=== PATIENT | female | born 1980 | race Caucasian/White ===

== ENCOUNTER 2019-02-13 14:31 | Emergency (ER) | payer OTHER, SELFPAY ==
[2019-02-13 14:44] VITALS: BP 171/70; PULSE 97; RESP 23; TEMP 36.7; O2SAT 97; BMI 50.0
--- NOTE | 2019-02-13 14:52 | DI.RAD.S_ITS ---
PROCEDURE: XR CHEST 1V INDICATIONS: anxiety, sob, dizzy sometimes TECHNIQUE: One view of the chest was acquired. COMPARISON: [facility], , CHEST 1 VIEW, 07/31/2015, 15:03. FINDINGS: Surgical changes and devices: None. Lungs and pleura: Lungs are clear. No pleural effusions or pneumothorax. Mediastinum: Mediastinal contours appear normal. Heart size is normal. Bones and chest wall: No suspicious bony lesions. Overlying soft tissues appear unremarkable. IMPRESSION: Mildly reduced inspiratory volume, source of current symptoms is not seen. Dictated by: Guanako Nava M.D. on 02/13/2019 at 15:17 Approved by: Guanako Nava M.D. on 02/13/2019 at 15:17
--- NOTE | 2019-02-13 14:52 | DI.US.S_ITS ---
PROCEDURE: US PERIPH VENOUS LOW EXTREM BI INDICATIONS: SHORTNESS OF BREATH TECHNIQUE: Real-time imaging, as well as color and pulse Doppler interrogation, were performed of the deep veins of both legs from the inguinal ligament to the popliteal fossa. COMPARISON: None. FINDINGS: Right: The common femoral, femoral and popliteal veins are normally compressible, and free of intraluminal thrombus. Color and pulse Doppler demonstrate normal phasic intravascular flow. There is normal augmentation response to distal compression maneuver. Left: The common femoral, femoral and popliteal veins are normally compressible, and free of intraluminal thrombus. Color and pulse Doppler demonstrate normal phasic intravascular flow. There is normal augmentation response to distal compression maneuver. IMPRESSION: No evidence of deep vein thrombosis within the bilateral lower extremities. Dictated by: Dimitri Montemayor M.D. on 02/13/2019 at 15:28 Approved by: Dimitri Montemayor M.D. on 02/13/2019 at 15:31
--- NOTE | 2019-02-13 14:55 | ED.SOB ---
HPI - SOB/Dyspnea General Chief Complaint: Shortness of Breath/Dyspnea Stated Complaint: sob/vertigo/chest pressure intermittently x2 weeks Time Seen by Provider: 02/13/19 14:43 Source: patient Mode of arrival: ambulatory Limitations: no limitations History of Present Illness 38-year-old female comes in the emergency department with complaint of elevated shortness of breath, slight dizziness. Patient does not feel like she is going to pass out or that the room is spinning. She just feels a little off. She states that she tripped be this mostly to anxiety. She is supposed to take a long distance late and was concerned about potential for pulmonary embolism. She is obese but does not have any other past medical history, she denies any regular medications, no prior surgeries. She is not on any estrogen or progesterone. She does have an IUD. She is family history with mom having a pulmonary embolism when she had lung cancer, otherwise no other family history of PEs. No other family history of cardiac or pulmonary issues either. Patient does not smoke she does not drink regularly, no illicit. Patient commutes about an hour daily, otherwise no long distance travel. She states she came in today because she has the plan trip and someone told her that those symptoms in combination could potentially be a pulmonary embolism. Related Data Home Medications Medication Instructions Recorded Confirmed Vitamin C 1 tab PO QPM 02/13/19 02/13/19 Vitamin D3 1 tab PO QPM 02/13/19 02/13/19 magnesium 1 tab PO QPM 02/13/19 02/13/19 multivitamin 1 tab PO QPM 02/13/19 02/13/19 Allergies Allergy/AdvReac Type Severity Reaction Status Date / Time No Known Drug Allergies Allergy Verified 02/13/19 14:44 Review of Systems Review of Systems ROS Unobtainable: All systems reviewed & are unremarkable except as noted in HPI and below Constitutional Denies chills, Denies fever(s), Denies lethargy and Denies weakness Cardiovascular Denies chest pain, Denies diaphoresis, Denies syncope, Denies rapid heart rate, Denies pedal edema, Denies edema, Denies irregular heart rhythm, Denies lightheadedness, Denies radiating jaw, neck or arm pain, Denies palpitations, Reports dyspnea (Feels like tight band, occurs when she thinks about it), Denies dyspnea on exertion and Denies orthopnea Respiratory Denies change in phlegm color, Denies chest congestion, Denies cough, Denies excessive phlegm production, Denies pain on inspiration, Denies pain with cough, Reports dyspnea (Feels like tight band, occurs when she thinks about it), Denies dyspnea on exertion and Denies wheezing Gastrointestinal Gastrointestinal: Denies abdominal pain, Denies change in bowel habits, Denies diarrhea, Denies nausea and Reports vomiting (Over the weekend, resolved. Contributes to ?bad strawberries?) Genitourinary Denies hematuria, Denies flank pain, Denies urinary incontinence and Denies urinary urgency Musculoskeletal Denies muscle cramps and Denies tingling Integumentary/Breasts Denies rash, Denies unusual bruising and Denies wounds Neurologic Denies syncope, Denies tingling and Denies weakness Endocrine Denies palpitations Allergic/Immunologic Denies wheezing PFSH Social History Smoking Status: Never smoker Social History (Updated 02/13/19 @ 14:58 by Keila Gale DO) Smoking Status: Never smoker alcohol intake: current substance use type: does not use Exam Narrative Exam Narrative: GENERAL: Alert and oriented x three, obese, well-appearing female in no acute distress. HEENT: Head normocephalic, atraumatic, EOMI, pupils reactive, face symmetric, moist mucous membranes NECK: Supple, full range of motion CARDIOVASCULAR: Regular rate and rhythm without murmurs, rubs or gallops. RESPIRATORY: Breath sounds equal bilaterally, no wheezes rales or rhonchi. ABDOMEN: Soft, nontender. Normoactive bowel sounds all 4 quadrants. No guarding or rebound, rigidity, no mass : No CVA tenderness EXTREMITIES: Normal range of motion, no clubbing or edema. No swelling in lower extremities no tenderness with Homans bilaterally, calves appear equal in size.. Neurovascularly intact NEUROLOGICAL: Cranial nerves II through XII grossly intact. Moving all extremities SKIN: Warm, dry, no petechiae, no rashes or lesions. Initial Vital Signs Initial Vital Signs: Vital Signs Temperature 98.1 F 02/13/19 14:44 Pulse Rate 97 H 02/13/19 14:44 Respiratory Rate 23 02/13/19 14:44 Blood Pressure 171/70 H 02/13/19 14:44 Pulse Oximetry 97 02/13/19 14:44 Scores HEART Score Heart Score history: Slightly Suspicious Heart Score EKG: Non-Specific repolarization disturbance Heart Score Age: < 45 years old Heart Score risk factors: No known risk factors Heart Score troponin: < or = to normal limit Heart Score Total: 1 PERC Score Age greater than or equal to 50 years: No Heart rate greater than or equal to 100 bpm: Yes Room Air O2 Sat less than 95%: No Unilateral leg swelling: No Recent trauma or surgery: No Hemoptysis: No Prior PE or DVT: No Hormone Use: No Total PERC Score: 1 Course Orders Ordered: ED Orders 02/13/19 14:45 B Type Natriuretic Peptide Stat Complete Blood Count AUTO DIFF Stat Comprehensive Metabolic Panel Stat D Dimer Stat Partial Thromboplastin Time Stat Prothrombin Time INR Stat Troponin & CK Cardiac Panel Stat 02/13/19 14:51 Consult to Respiratory Therapy Evaluate & Treat EKG-12 Lead Stat Measure peak expiratory flow ONCE RT Consult Eval and Treat Now 02/13/19 14:52 US periph venous low extrem bi Stat XR chest 1V Stat 02/13/19 15:09 Lactate (Lactic Acid) Stat Vital Signs - 8 hr 02/13/19 14:44 02/13/19 15:00 02/13/19 15:37 Temperature 98.1 F Pulse Rate 97 H 91 H 86 Respiratory Rate 23 16 15 Blood Pressure 171/70 H Blood Pressure [Right Arm] 164/92 H 156/71 H Pulse Oximetry 97 02/13/19 16:38 Temperature Pulse Rate 86 Respiratory Rate 13 Blood Pressure Blood Pressure [Right Arm] 137/71 Pulse Oximetry 97 MDM - SOB/Dyspnea Lab Data Attestation: I reviewed the patient's lab results. Result diagrams: 02/13/19 14:45 02/13/19 14:45 Lab Results 02/13/19 02/13/19 02/13/19 Range/Units 14:45 14:45 14:45 WBC 9.2 (4.5-11.0) X10^3/uL RBC 4.88 (4.0-5.2) X10^6/uL Hgb 13.7 (12.0-16.0) g/dL Hct 40.8 (36-46) % MCV 83.6 (80-100) fL MCH 28.0 (26-34) PG MCHC 33.5 (30-36) % RDW 14.8 (11.6-14.8) % Plt Count 289 (150-400) X10^3/uL Neut % (Auto) 55.5 (50-75) % Lymph % (Auto) 29.2 (25-40) % Austin % (Auto) 11.2 (3-14) % Eos % (Auto) 3.0 (2-4) % Baso % (Auto) 1.1 (0-2) % Neut # (Auto) 5100 (6129-5047) /uL Lymph # (Auto) 2700 (4101-5047) /uL Austin # (Auto) 1000 H (0-900) /uL Eos # (Auto) 300 (0-450) /uL Baso # (Auto) 100 (0-100) /uL PT 11.7 (10.1-12.7) SECONDS INR 1.0 (0.9-1.3) APTT 28 (26.4-36.2) SECONDS D-Dimer < 200 (<230) ng/mL Sodium 139 (137-145) mmol/L Potassium 4.2 (3.4-5.1) mmol/L Chloride 103 (98-107) mmol/L Carbon Dioxide 27 (22-32) mmol/L BUN 8 (7-17) mg/dL Creatinine 0.50 L (0.52-1.04) mg/dL Estimated GFR > 60.0 (>60) mL/min BUN/Creatinine Ratio 16.0 (6-22) Glucose 167 H (70-100) mg/dL Lactate (0.7-2.1) mmol/L Calcium 9.4 (8.4-10.2) mg/dL Total Bilirubin 0.7 (0.2-1.3) mg/dL AST 43 H (14-36) IU/L ALT 50 (9-52) IU/L Alkaline Phosphatase 60 (38-126) U/L Total Creatine Kinase (30-135) U/L CK-MB (CK-2) CK-MB (CK-2) Rel Index Troponin I (0.01-0.034) ng/mL B-Natriuretic Peptide (<100) Total Protein 8.0 (6.3-8.2) g/dL Albumin 4.6 (3.5-5.0) g/dL Globulin 3.4 (1.7-4.1) g/dL Albumin/Globulin Ratio 1.4 (1.0-2.8) 02/13/19 02/13/19 02/13/19 Range/Units 14:45 14:45 15:09 WBC (4.5-11.0) X10^3/uL RBC (4.0-5.2) X10^6/uL Hgb (12.0-16.0) g/dL Hct (36-46) % MCV (80-100) fL MCH (26-34) PG MCHC (30-36) % RDW (11.6-14.8) % Plt Count (150-400) X10^3/uL Neut % (Auto) (50-75) % Lymph % (Auto) (25-40) % Austin % (Auto) (3-14) % Eos % (Auto) (2-4) % Baso % (Auto) (0-2) % Neut # (Auto) (5270-3544) /uL Lymph # (Auto) (2034-0432) /uL Austin # (Auto) (0-900) /uL Eos # (Auto) (0-450) /uL Baso # (Auto) (0-100) /uL PT (10.1-12.7) SECONDS INR (0.9-1.3) APTT (26.4-36.2) SECONDS D-Dimer (<230) ng/mL Sodium (137-145) mmol/L Potassium (3.4-5.1) mmol/L Chloride (98-107) mmol/L Carbon Dioxide (22-32) mmol/L BUN (7-17) mg/dL Creatinine (0.52-1.04) mg/dL Estimated GFR (>60) mL/min BUN/Creatinine Ratio (6-22) Glucose (70-100) mg/dL Lactate 1.6 (0.7-2.1) mmol/L Calcium (8.4-10.2) mg/dL Total Bilirubin (0.2-1.3) mg/dL AST (14-36) IU/L ALT (9-52) IU/L Alkaline Phosphatase (38-126) U/L Total Creatine Kinase 100 (30-135) U/L CK-MB (CK-2) TNP CK-MB (CK-2) Rel Index TNP Troponin I < 0.012 (0.01-0.034) ng/mL B-Natriuretic Peptide < 100 (<100) Total Protein (6.3-8.2) g/dL Albumin (3.5-5.0) g/dL Globulin (1.7-4.1) g/dL Albumin/Globulin Ratio (1.0-2.8) Imaging Data Chest x-ray: Radiologist's impression: [address] [address] XRay Report Signed Patient: [facility]#: [id number] : 1980Acct:[id number] Age/Sex: 38 / FDate of Service: 02/13/19 Loc: ED Accession Number: [id number] Procedure: XR chest 1V Ordering Provider: Keila Gale D.O. PROCEDURE: XR CHEST 1V INDICATIONS: anxiety, sob, dizzy sometimes TECHNIQUE: One view of the chest was acquired. COMPARISON: [facility], CHEST 1 VIEW, 07/31/2015, 15:03. FINDINGS: Surgical changes and devices: None. Lungs and pleura: Lungs are clear. No pleural effusions or pneumothorax. Mediastinum: Mediastinal contours appear normal. Heart size is normal. Bones and chest wall: No suspicious bony lesions. Overlying soft tissues appear unremarkable. IMPRESSION: Mildly reduced inspiratory volume, source of current symptoms is not seen. Dictated by: Guanako Nava M.D. on 02/13/2019 at 15:17 Approved by: Guanako Nava M.D. on 02/13/2019 at 15:17 Bilateral lower extremity ultrasound: Radiologist's impression: [address] [address] Ultrasound Report Signed Patient: [facility]#: [id number] : 1980Acct:[id number] Age/Sex: 38 / FDate of Service: 02/13/19 Loc: ED Accession Number: [id number] Procedure: US periph venous low extrem bi Ordering Provider: Keila Gale D.O. PROCEDURE: US PERIPH VENOUS LOW EXTREM BI INDICATIONS: SHORTNESS OF BREATH TECHNIQUE: Real-time imaging, as well as color and pulse Doppler interrogation, were performed of the deep veins of both legs from the inguinal ligament to the popliteal fossa. COMPARISON: None. FINDINGS: Right: The common femoral, femoral and popliteal veins are normally compressible, and free of intraluminal thrombus. Color and pulse Doppler demonstrate normal phasic intravascular flow. There is normal augmentation response to distal compression maneuver. Left: The common femoral, femoral and popliteal veins are normally compressible, and free of intraluminal thrombus. Color and pulse Doppler demonstrate normal phasic intravascular flow. There is normal augmentation response to distal compression maneuver. IMPRESSION: No evidence of deep vein thrombosis within the bilateral lower extremities. Dictated by: Dimitri Montemayor M.D. on 02/13/2019 at 15:28 Approved by: Dimitri Montemayor M.D. on 02/13/2019 at 15:31 ECG Data Attestation: I personally reviewed and interpreted this ECG as follows: Prior ECG tracings: available for review Interpretation: Sinus tachycardia rate of 101 ND 176 QRS of 95 and QTC of 390. ST slightly elevated in 3 and avF, depression appreciated. Patient has low voltage in 3 and AVF. MDM Narrative Medical decision making narrative: Patient's lab work including D-dimer, bilateral lower extremity ultrasounds, chest x-ray and CBC and CMP as well as coags are all negative. Patient's EKG has limited change in 3 and AVF although this is similar to her prior EKG from 2015. Patient politely refused a test as she states that there is no change she is and she has not had sexual activity over a year patient elevated 167 and AST was slightly elevated at 43. Discussed with patient my suspicion for pulmonary embolism as low. She has had these symptoms but she states that they only happened when she thinks about them. She does not have another risk factors besides obesity. Her family history her mother did have potentially inciting cause with her active lung cancer. Discussed with patient she feels comfortable not doing additional imaging at this time. Discharge Plan Departure Patient Disposition: Home Clinical Impression: Dyspnea Discharge Date/Time: 02/13/19 16:50 Interventions: ED Discharge Assessment Last Done: 02/13/19 16:49 Instructions: DI for Shortness of Breath Activity Restrictions/Additional Instructions: Follow-up with primary care in the next 3-5 days if your having continuing symptoms. Call in [phone] for a referral. Return to the emergency department for fevers greater than 100.4 F, worsening shortness of breath, new chest pain or pressure, passing out, persistent vomiting,, swelling of her lower extremities, redness or cramping and pain in the lower extremities, if having any other new or concerning symptoms. Prescriptions: No Action multivitamin Tablet 1 tab PO QPM RF: 0 Vitamin C 1 tab PO QPM RF: 0 Vitamin D3 1 tab PO QPM RF: 0 magnesium 1 tab PO QPM RF: 0
[2019-02-13 15:00] VITALS: BP 164/92; PULSE 91; RESP 16
--- NOTE | 2019-02-13 15:01 | ED_ITS ---
HPI - SOB/Dyspnea General Chief Complaint: Shortness of Breath/Dyspnea Stated Complaint: sob/vertigo/chest pressure intermittently x2 weeks Time Seen by Provider: 02/13/19 14:43 Source: patient Mode of arrival: ambulatory Limitations: no limitations History of Present Illness 38-year-old female comes in the emergency department with complaint of elevated shortness of breath, slight dizziness. Patient does not feel like she is going to pass out or that the room is spinning. She just feels a little off. She states that she tripped be this mostly to anxiety. She is supposed to take a long distance late and was concerned about potential for pulmonary embolism. She is obese but does not have any other past medical history, she denies any regular medications, no prior surgeries. She is not on any estrogen or progesterone. She does have an IUD. She is family history with mom having a pulmonary embolism when she had lung cancer, otherwise no other family history of PEs. No other family history of cardiac or pulmonary issues either. Patient does not smoke she does not drink regularly, no illicit. Patient commutes about an hour daily, otherwise no long distance travel. She states she came in today because she has the plan trip and someone told her that those symptoms in combination could potentially be a pulmonary embolism. Related Data Home Medications Medication Instructions Recorded Confirmed Vitamin C 1 tab PO QPM 02/13/19 02/13/19 Vitamin D3 1 tab PO QPM 02/13/19 02/13/19 magnesium 1 tab PO QPM 02/13/19 02/13/19 multivitamin 1 tab PO QPM 02/13/19 02/13/19 Allergies Allergy/AdvReac Type Severity Reaction Status Date / Time No Known Drug Allergies Allergy Verified 02/13/19 14:44 Review of Systems Review of Systems ROS Unobtainable: All systems reviewed & are unremarkable except as noted in HPI and below Constitutional Denies chills, Denies fever(s), Denies lethargy and Denies weakness Cardiovascular Denies chest pain, Denies diaphoresis, Denies syncope, Denies rapid heart rate, Denies pedal edema, Denies edema, Denies irregular heart rhythm, Denies lightheadedness, Denies radiating jaw, neck or arm pain, Denies palpitations, Reports dyspnea (Feels like tight band, occurs when she thinks about it), Denies dyspnea on exertion and Denies orthopnea Respiratory Denies change in phlegm color, Denies chest congestion, Denies cough, Denies excessive phlegm production, Denies pain on inspiration, Denies pain with cough, Reports dyspnea (Feels like tight band, occurs when she thinks about it), Denies dyspnea on exertion and Denies wheezing Gastrointestinal Gastrointestinal: Denies abdominal pain, Denies change in bowel habits, Denies diarrhea, Denies nausea and Reports vomiting (Over the weekend, resolved. Contributes to ?bad strawberries?) Genitourinary Denies hematuria, Denies flank pain, Denies urinary incontinence and Denies urinary urgency Musculoskeletal Denies muscle cramps and Denies tingling Integumentary/Breasts Denies rash, Denies unusual bruising and Denies wounds Neurologic Denies syncope, Denies tingling and Denies weakness Endocrine Denies palpitations Allergic/Immunologic Denies wheezing PFSH Social History Smoking Status: Never smoker Social History (Updated 02/13/19 @ 14:58 by Keila Gale DO) Smoking Status: Never smoker alcohol intake: current substance use type: does not use Exam Narrative Exam Narrative: GENERAL: Alert and oriented x three, obese, well-appearing female in no acute distress. HEENT: Head normocephalic, atraumatic, EOMI, pupils reactive, face symmetric, moist mucous membranes NECK: Supple, full range of motion CARDIOVASCULAR: Regular rate and rhythm without murmurs, rubs or gallops. RESPIRATORY: Breath sounds equal bilaterally, no wheezes rales or rhonchi. ABDOMEN: Soft, nontender. Normoactive bowel sounds all 4 quadrants. No guarding or rebound, rigidity, no mass : No CVA tenderness EXTREMITIES: Normal range of motion, no clubbing or edema. No swelling in lower extremities no tenderness with Homans bilaterally, calves appear equal in size.. Neurovascularly intact NEUROLOGICAL: Cranial nerves II through XII grossly intact. Moving all extremities SKIN: Warm, dry, no petechiae, no rashes or lesions. Initial Vital Signs Initial Vital Signs: Vital Signs Temperature 98.1 F 02/13/19 14:44 Pulse Rate 97 H 02/13/19 14:44 Respiratory Rate 23 02/13/19 14:44 Blood Pressure 171/70 H 02/13/19 14:44 Pulse Oximetry 97 02/13/19 14:44 Scores HEART Score Heart Score history: Slightly Suspicious Heart Score EKG: Non-Specific repolarization disturbance Heart Score Age: < 45 years old Heart Score risk factors: No known risk factors Heart Score troponin: < or = to normal limit Heart Score Total: 1 PERC Score Age greater than or equal to 50 years: No Heart rate greater than or equal to 100 bpm: Yes Room Air O2 Sat less than 95%: No Unilateral leg swelling: No Recent trauma or surgery: No Hemoptysis: No Prior PE or DVT: No Hormone Use: No Total PERC Score: 1 Course Orders Ordered: ED Orders 02/13/19 14:45 B Type Natriuretic Peptide Stat Complete Blood Count AUTO DIFF Stat Comprehensive Metabolic Panel Stat D Dimer Stat Partial Thromboplastin Time Stat Prothrombin Time INR Stat Troponin & CK Cardiac Panel Stat 02/13/19 14:51 Consult to Respiratory Therapy Evaluate & Treat EKG-12 Lead Stat Measure peak expiratory flow ONCE RT Consult Eval and Treat Now 02/13/19 14:52 US periph venous low extrem bi Stat XR chest 1V Stat 02/13/19 15:09 Lactate (Lactic Acid) Stat Vital Signs - 8 hr 02/13/19 14:44 02/13/19 15:00 02/13/19 15:37 Temperature 98.1 F Pulse Rate 97 H 91 H 86 Respiratory Rate 23 16 15 Blood Pressure 171/70 H Blood Pressure [Right Arm] 164/92 H 156/71 H Pulse Oximetry 97 02/13/19 16:38 Temperature Pulse Rate 86 Respiratory Rate 13 Blood Pressure Blood Pressure [Right Arm] 137/71 Pulse Oximetry 97 MDM - SOB/Dyspnea Lab Data Attestation: I reviewed the patient's lab results. Result diagrams: 02/13/19 14:45 02/13/19 14:45 Lab Results 02/13/19 02/13/19 02/13/19 Range/Units 14:45 14:45 14:45 WBC 9.2 (4.5-11.0) X10^3/uL RBC 4.88 (4.0-5.2) X10^6/uL Hgb 13.7 (12.0-16.0) g/dL Hct 40.8 (36-46) % MCV 83.6 (80-100) fL MCH 28.0 (26-34) PG MCHC 33.5 (30-36) % RDW 14.8 (11.6-14.8) % Plt Count 289 (150-400) X10^3/uL Neut % (Auto) 55.5 (50-75) % Lymph % (Auto) 29.2 (25-40) % [place] % (Auto) 11.2 (3-14) % Eos % (Auto) 3.0 (2-4) % Baso % (Auto) 1.1 (0-2) % Neut # (Auto) 5100 (5820-0740) /uL Lymph # (Auto) 2700 (4284-4688) /uL [place] # (Auto) 1000 H (0-900) /uL Eos # (Auto) 300 (0-450) /uL Baso # (Auto) 100 (0-100) /uL PT 11.7 (10.1-12.7) SECONDS INR 1.0 (0.9-1.3) APTT 28 (26.4-36.2) SECONDS D-Dimer < 200 (<230) ng/mL Sodium 139 (137-145) mmol/L Potassium 4.2 (3.4-5.1) mmol/L Chloride 103 (98-107) mmol/L Carbon Dioxide 27 (22-32) mmol/L BUN 8 (7-17) mg/dL Creatinine 0.50 L (0.52-1.04) mg/dL Estimated GFR > 60.0 (>60) mL/min BUN/Creatinine Ratio 16.0 (6-22) Glucose 167 H (70-100) mg/dL Lactate (0.7-2.1) mmol/L Calcium 9.4 (8.4-10.2) mg/dL Total Bilirubin 0.7 (0.2-1.3) mg/dL AST 43 H (14-36) IU/L ALT 50 (9-52) IU/L Alkaline Phosphatase 60 (38-126) U/L Total Creatine Kinase (30-135) U/L CK-MB (CK-2) CK-MB (CK-2) Rel Index Troponin I (0.01-0.034) ng/mL B-Natriuretic Peptide (<100) Total Protein 8.0 (6.3-8.2) g/dL Albumin 4.6 (3.5-5.0) g/dL Globulin 3.4 (1.7-4.1) g/dL Albumin/Globulin Ratio 1.4 (1.0-2.8) 02/13/19 02/13/19 02/13/19 Range/Units 14:45 14:45 15:09 WBC (4.5-11.0) X10^3/uL RBC (4.0-5.2) X10^6/uL Hgb (12.0-16.0) g/dL Hct (36-46) % MCV (80-100) fL MCH (26-34) PG MCHC (30-36) % RDW (11.6-14.8) % Plt Count (150-400) X10^3/uL Neut % (Auto) (50-75) % Lymph % (Auto) (25-40) % [place] % (Auto) (3-14) % Eos % (Auto) (2-4) % Baso % (Auto) (0-2) % Neut # (Auto) (6664-3346) /uL Lymph # (Auto) (7810-6845) /uL [place] # (Auto) (0-900) /uL Eos # (Auto) (0-450) /uL Baso # (Auto) (0-100) /uL PT (10.1-12.7) SECONDS INR (0.9-1.3) APTT (26.4-36.2) SECONDS D-Dimer (<230) ng/mL Sodium (137-145) mmol/L Potassium (3.4-5.1) mmol/L Chloride (98-107) mmol/L Carbon Dioxide (22-32) mmol/L BUN (7-17) mg/dL Creatinine (0.52-1.04) mg/dL Estimated GFR (>60) mL/min BUN/Creatinine Ratio (6-22) Glucose (70-100) mg/dL Lactate 1.6 (0.7-2.1) mmol/L Calcium (8.4-10.2) mg/dL Total Bilirubin (0.2-1.3) mg/dL AST (14-36) IU/L ALT (9-52) IU/L Alkaline Phosphatase (38-126) U/L Total Creatine Kinase 100 (30-135) U/L CK-MB (CK-2) TNP CK-MB (CK-2) Rel Index TNP Troponin I < 0.012 (0.01-0.034) ng/mL B-Natriuretic Peptide < 100 (<100) Total Protein (6.3-8.2) g/dL Albumin (3.5-5.0) g/dL Globulin (1.7-4.1) g/dL Albumin/Globulin Ratio (1.0-2.8) Imaging Data Chest x-ray: Radiologist's impression: [address] [address] XRay Report Signed Patient: Alma Avila [facility]#: [id number] : 1980Acct:[id number] Age/Sex: 38 / FDate of Service: 02/13/19 Loc: ED Accession Number: [id number] Procedure: XR chest 1V Ordering Provider: Keila Gale D.O. PROCEDURE: XR CHEST 1V INDICATIONS: anxiety, sob, dizzy sometimes TECHNIQUE: One view of the chest was acquired. COMPARISON: [facility], CHEST 1 VIEW, 07/31/2015, 15:03. FINDINGS: Surgical changes and devices: None. Lungs and pleura: Lungs are clear. No pleural effusions or pneumothorax. Mediastinum: Mediastinal contours appear normal. Heart size is normal. Bones and chest wall: No suspicious bony lesions. Overlying soft tissues appear unremarkable. IMPRESSION: Mildly reduced inspiratory volume, source of current symptoms is not seen. Dictated by: Guanako Nava M.D. on 02/13/2019 at 15:17 Approved by: Guanako Nava M.D. on 02/13/2019 at 15:17 Bilateral lower extremity ultrasound: Radiologist's impression: [address] [address] Ultrasound Report Signed Patient: Alma Avila [facility]#: [id number] : 1980Acct:[id number] Age/Sex: 38 / FDate of Service: 02/13/19 Loc: ED Accession Number: [id number] Procedure: US periph venous low extrem bi Ordering Provider: Keila Gale D.O. PROCEDURE: US PERIPH VENOUS LOW EXTREM BI INDICATIONS: SHORTNESS OF BREATH TECHNIQUE: Real-time imaging, as well as color and pulse Doppler interrogation, were performed of the deep veins of both legs from the inguinal ligament to the popliteal fossa. COMPARISON: None. FINDINGS: Right: The common femoral, femoral and popliteal veins are normally compressible, and free of intraluminal thrombus. Color and pulse Doppler demonstrate normal phasic intravascular flow. There is normal augmentation response to distal compression maneuver. Left: The common femoral, femoral and popliteal veins are normally compressible, and free of intraluminal thrombus. Color and pulse Doppler demonstrate normal phasic intravascular flow. There is normal augmentation response to distal compression maneuver. IMPRESSION: No evidence of deep vein thrombosis within the bilateral lower extremities. Dictated by: Dimitri Montemayor M.D. on 02/13/2019 at 15:28 Approved by: Dimitri Montemayor M.D. on 02/13/2019 at 15:31 ECG Data Attestation: I personally reviewed and interpreted this ECG as follows: Prior ECG tracings: available for review Interpretation: Sinus tachycardia rate of 101 PA 176 QRS of 95 and QTC of 390. ST slightly elevated in 3 and avF, depression appreciated. Patient has low voltage in 3 and AVF. MDM Narrative Medical decision making narrative: Patient's lab work including D-dimer, bilateral lower extremity ultrasounds, chest x-ray and CBC and CMP as well as c oags are all negative. Patient's EKG has limited change in 3 and AVF although this is similar to her prior EKG from 2015. Patient politely refused a test as she states that there is no change she is and she has not had sexual activity over a year patient elevated 167 and AST was slightly elevated at 43. Discussed with patient my suspicion for pulmonary embolism as low. She has had these symptoms but she states that they only happened when she thinks about them. She does not have another risk factors besides obesity. Her family history her mother did have potentially inciting cause with her active lung cancer. Discussed with patient she feels comfortable not doing additional imaging at this time. Discharge Plan Departure Patient Disposition: Home Clinical Impression: Dyspnea Discharge Date/Time: 02/13/19 16:50 Interventions: ED Discharge Assessment Last Done: 02/13/19 16:49 Instructions: DI for Shortness of Breath Activity Restrictions/Additional Instructions: Follow-up with primary care in the next 3-5 days if your having continuing symptoms. Call in [phone] for a referral. Return to the emergency department for fevers greater than 100.4 F, worsening shortness of breath, new chest pain or pressure, passing out, persistent vomiti ng,, swelling of her lower extremities, redness or cramping and pain in the lower extremities, if having any other new or concerning symptoms. Prescriptions: No Action multivitamin Tablet 1 tab PO QPM RF: 0 Vitamin C 1 tab PO QPM RF: 0 Vitamin D3 1 tab PO QPM RF: 0 magnesium 1 tab PO QPM RF: 0
--- NOTE | 2019-02-13 15:01 | PC.NURSE ---
Patient is declining test. Provider aware.
[2019-02-13 15:02] LABS: Add Manual Diff / Slide Review NO; Basophils Absolute Auto 100 /uL (0-100); Basophils Percent Auto 1.1 % (0-2); Eosinophils Absolute Auto 300 /uL (0-450); Hematocrit 40.8 % (36-46); Hemoglobin 13.7 g/dL (12.0-16.0); Lymphocytes Absolute Auto 2700 /uL (1100-4500); Lymphocytes Percent Auto 29.2 % (25-40); Mean Corpuscular HGB Conc 33.5 % (30-36); Mean Corpuscular Volume 83.6 fL (80-100); Monocytes Absolute Auto 1000 /uL (0-900); Monocytes Percent Auto 11.2 % (3-14); Neutrophils Absolute Auto 5100 /uL (1500-7000); Neutrophils Percent Auto 55.5 % (50-75); Platelet Count 289 X10^3/uL (150-400); Red Blood Cell Count 4.88 X10^6/uL (4.0-5.2); Red Cell Distribution Width 14.8 % (11.6-14.8); White Blood Cell Count 9.2 X10^3/uL (4.5-11.0)
[2019-02-13 15:20] LABS: Alanine Aminotransferase 50 IU/L (9-52); Albumin 4.6 g/dL (3.5-5.0); Albumin Globulin Ratio 1.4 (1.0-2.8); Alkaline Phosphatase 60 U/L (38-126); Aspartate Aminotransferase 43 IU/L (14-36); Bilirubin Total 0.7 mg/dL (0.2-1.3); Blood Urea Nitrogen 8 mg/dL (7-17); Calcium 9.4 mg/dL (8.4-10.2); Carbon Dioxide 27 mmol/L (22-32); Chloride 103 mmol/L (98-107); Creatine Kinase 100 U/L (30-135); Estimated Glomerular Filt Rate > 60.0 mL/min (>60); Globulin 3.4 g/dL (1.7-4.1); Glucose 167 mg/dL (70-100); Potassium 4.2 mmol/L (3.4-5.1); Sodium 139 mmol/L (137-145)
[2019-02-13 15:23] LABS: HEMOLYSIS 57 (0-50)
[2019-02-13 15:29] LABS: Prothrombin Time 11.7 SECONDS (10.1-12.7)
[2019-02-13 15:31] LABS: Troponin I < 0.012 ng/mL (0.01-0.034)
[2019-02-13 15:32] LABS: PTT Partial Thromboplastin Tim 28 SECONDS (26.4-36.2)
[2019-02-13 15:37] VITALS: BP 156/71; PULSE 86; RESP 15
[2019-02-13 15:41] LABS: Lactate (Lactic Acid) 1.6 mmol/L (0.7-2.1)
[2019-02-13 15:45] LABS: B Type Natriuretic Peptide < 100 (<100); D Dimer < 200 ng/mL (<230)
[2019-02-13 16:38] VITALS: BP 137/71; PULSE 86; RESP 13; O2SAT 97
== END 2019-02-13 16:50 | disposition home or self-care (01) ==
PROVIDERS: Emergency Provider Emergency Medicine
DX: R06.00 Dyspnea, unspecified (principal); R07.89 Other chest pain
CPT/HCPCS: 36415; 71045; 80053; 82550; 83605; 83880; 84484; 85025; 85379; 85610; 85730; 93005; 93010; 93970; 99283; 99285